=== PATIENT | male | born 1990 | race Caucasian/White ===

== ENCOUNTER 2017-03-28 09:35 | Emergency (ER) | payer BC, OTHER ==
[2017-03-28 10:37] LABS: Hematocrit 43 % (42-52); Hemoglobin 14.8 g/dl (14.0-18.0); Mean Corpuscular HGB Conc 34 g/dl (31-36); Mean Corpuscular Hemoglobin 29 pg (27-31); Mean Corpuscular Volume 85 fL (80-94); Mean Platelet Volume 8 um3 (7.4-10.4); Red Blood Count 5.07 10^6/ul (4.0-5.4); Red Cell Distribution Width 13 % (10.5-15); White Blood Count 7.1 10^3/ul (3.5-10.8)
[2017-03-28 10:50] LABS: ALT 16 U/L (7-52); AST 18 U/L (13-39); Albumin 4.5 g/dL (3.2-5.2); Alkaline Phosphatase 35 U/L (34-104); Anion Gap 6 mmol/L (2-11); BUN/Creatinine Ratio 16.3 (8-20); Blood Urea Nitrogen 14 mg/dL (6-24); CO2 Carbon Dioxide 26 mmol/L (22-32); Calcium 9.7 mg/dL (8.6-10.3); Chloride 102 mmol/L (101-111); EGFR African American 139.3 (>60); EGFR Non-African American 108.4 (>60); Globulin 2.8 g/dL (2-4); Glucose 93 mg/dL (70-100); Magnesium 2.2 mg/dL (1.9-2.7); Potassium 4.1 mmol/L (3.5-5.0); Sodium 134 mmol/L (133-145); Total Protein 7.3 g/dL (6.4-8.9)
[2017-03-28 11:14] LABS: Alcohol < 10 mg/dL (<10)
[2017-03-28 12:07] LABS: Urine Bilirubin Negative (Negative); Urine Glucose Negative (Negative); Urine Nitrite Negative (Negative)
[2017-03-28] MEDS ORDERED: Divalproex ER TAB(*) 500 MG PO ONE (12:10)
[2017-03-28 12:12] VITALS: BP 119/80
[2017-03-28 12:21] LABS: Benzodiazepine Urine Screen None Detected (None Detect)
--- NOTE | 2017-03-28 17:10 | ED ---
Irena Murphy Alfonso, scribed for Natanael Sparks MD on 03/28/17 at 1000 . Complex/Multi-Sys Presentation - HPI Summary HPI Summary: This patient is a 26 year old M presenting to [facility] accompanied by family with a chief complaint of a witnessed seizure at approximately 0900 today. Patient reports this was "different than any I have ever had this was a grand mal. Family reports he was standing, talking, just dropped, was caught before hitting the floor, foaming, giber gabber out of his mouth, he was out of it, not aware for a minute or so. The patient rates the pain 0/10 in severity. Symptoms alleviated by spontaneous resolution. Patient reports hunger, and dehydration. Patient denies fever, chills, N/V, CP, and recent substance use. He slept 7 hours last night. He is on depakote and Dr. Castillo is his neurologist. - History Of Current Complaint Chief Complaint: EDSeizure Time Seen by Provider: 03/28/17 09:45 Hx Obtained From: Patient, Family/Manager Human Resources Onset/Duration: Sudden Onset, Lasting Minutes - 1-2, Resolved Timing: Constant Severity Currently: None Alleviating Factor(s): spontaneous resolution Associated Signs And Symptoms: Positive: Other - hunger, and dehydration. Patient denies fever, chills, N/V, CP, and recent substance use. - Allergies/Home Medications Allergies/Adverse Reactions: Allergies Allergy/AdvReac Type Severity Reaction Status Date / Time No Known Allergies Allergy Verified 01/10/16 07:26 PMH/Surg Hx/FS Hx/Imm Hx Opthamlomology History: Denies: Hx Legally Blind EENT History: Denies: Hx Deafness Neurological History: Reports: Hx Seizures Infectious Disease History: No Infectious Disease History: Denies: History Other Infectious Disease, Traveled Outside the [place] in Last 30 Days - Family History Known Family History: Positive: Hypertension - Social History Alcohol Use: Rare Hx Substance Use: No Substance Use Type: Reports: None Hx Tobacco Use: No Smoking Status (MU): Never Smoked Tobacco Amount Used/How Often: DAILY Review of Systems Positive: Other - hunger, and dehydration. Negative: Fever, Chills Negative: Chest Pain Negative: Vomiting, Nausea Neurological: Other - seizure; negative recent substance use All Other Systems Reviewed And Are Negative: Yes Physical Exam - Summary Physical Exam Summary: VITAL SIGNS: Reviewed. GENERAL: Patient is a well-developed and nourished male who is lying comfortable in the stretcher. Patient is not in any acute respiratory distress. HEAD AND FACE: No signs of trauma. No ecchymosis, hematomas or skull depressions. No sinus tenderness. EYES: PERRLA, EOMI x 2, No injected conjunctiva, no nystagmus. No photophobia. EARS: Hearing grossly intact. Ear canals and tympanic membranes are within normal limits. MOUTH: Oropharynx within normal limits. NECK: Supple, trachea is midline, no adenopathy, no JVD, no carotid bruit, no c- spine tenderness, neck with full ROM. No meningeal signs, no Kernig's or brudzinskis signs. CHEST: Symmetric, no tenderness at palpation LUNGS: Clear to auscultation bilaterally. No wheezing or crackles. CVS: Regular rate and rhythm, S1 and S2 present, no murmurs or gallops appreciated. ABDOMEN: Soft, non-tender. No signs of distention. No rebound no guarding, and no masses palpated. Bowel sounds are normal. EXTREMITIES: FROM in all major joints, no edema, no cyanosis or clubbing. NEURO: Alert and oriented x 3. No acute neurological deficits. Speech is normal and follows commands. SKIN: Dry and warm GCS: 15 Triage Information Reviewed: Yes Vital Signs On Initial Exam: Initial Vitals Temp Pulse Resp BP Pulse Ox 97 F 78 16 138/68 99 03/28/17 09:36 03/28/17 09:36 03/28/17 09:36 03/28/17 09:36 03/28/17 09:36 Vital Signs Reviewed: Yes - [place] Coma Scale Best Eye Response: 4 - Spontaneous Best Motor Response: 6 - Obeys Commands Best Verbal Response: 5 - Oriented Diagnostics - Vital Signs Vital Signs Temp Pulse Resp BP Pulse Ox 03/28/17 09:54 86 97 03/28/17 09:48 121/75 03/28/17 09:36 97 F 78 16 138/68 99 - Laboratory Lab Results: Lab Results 03/28/17 03/28/17 03/28/17 Range/Units 10:25 10:25 10:25 WBC 7.1 (3.5-10.8) 10^3/ul RBC 5.07 (4.0-5.4) 10^6/ul Hgb 14.8 (14.0-18.0) g/dl Hct 43 (42-52) % MCV 85 (80-94) fL MCH 29 (27-31) pg MCHC 34 (31-36) g/dl RDW 13 (10.5-15) % Plt Count 258 (150-450) 10^3/ul MPV 8 (7.4-10.4) um3 Neut % (Auto) 67.7 (38-83) % Lymph % (Auto) 20.8 L (25-47) % Ida % (Auto) 8.8 (1-9) % Eos % (Auto) 1.8 (0-6) % Baso % (Auto) 0.9 (0-2) % Absolute Neuts (auto) 4.8 (1.5-7.7) 10^3/ul Absolute Lymphs (auto) 1.5 (1.0-4.8) 10^3/ul Absolute Monos (auto) 0.6 (0-0.8) 10^3/ul Absolute Eos (auto) 0.1 (0-0.6) 10^3/ul Absolute Basos (auto) 0.1 (0-0.2) 10^3/ul Absolute Nucleated RBC 0.01 10^3/ul Nucleated RBC % 0.1 INR (Anticoag Therapy) 1.01 (0.77-1.02) Sodium 134 (133-145) mmol/L Potassium 4.1 (3.5-5.0) mmol/L Chloride 102 (101-111) mmol/L Carbon Dioxide 26 (22-32) mmol/L Anion Gap 6 (2-11) mmol/L BUN 14 (6-24) mg/dL Creatinine 0.86 (0.67-1.17) mg/dL Est GFR ( Amer) 139.3 (>60) Est GFR (Non-Af Amer) 108.4 (>60) BUN/Creatinine Ratio 16.3 (8-20) Glucose 93 (70-100) mg/dL Lactic Acid (0.5-2.0) mmol/L Calcium 9.7 (8.6-10.3) mg/dL Magnesium 2.2 (1.9-2.7) mg/dL Total Bilirubin 0.70 (0.2-1.0) mg/dL AST 18 (13-39) U/L ALT 16 (7-52) U/L Alkaline Phosphatase 35 (34-104) U/L Total Protein 7.3 (6.4-8.9) g/dL Albumin 4.5 (3.2-5.2) g/dL Globulin 2.8 (2-4) g/dL Albumin/Globulin Ratio 1.6 (1-3) Urine Color Urine Appearance Urine pH (5-9) Ur Specific [place] (1.010-1.030) Urine Protein (Negative) Urine Ketones (Negative) Urine Blood (Negative) Urine Nitrate (Negative) Urine Bilirubin (Negative) Urine Urobilinogen (Negative) Ur Leukocyte Esterase (Negative) Urine Glucose (Negative) Urine Opiates Screen (None Detect) Ur Barbiturates Screen (None Detect) Valproic Acid 17.0 L (50-100) mcg/mL Ur Phencyclidine Scrn (None Detect) Ur Amphetamines Screen (None Detect) U Benzodiazepines Scrn (None Detect) Urine Cocaine Screen (None Detect) U Cannabinoids Screen (None Detect) Serum Alcohol < 10 (<10) mg/dL 03/28/17 03/28/17 03/28/17 Range/Units 10:25 11:56 11:56 WBC (3.5-10.8) 10^3/ul RBC (4.0-5.4) 10^6/ul Hgb (14.0-18.0) g/dl Hct (42-52) % MCV (80-94) fL MCH (27-31) pg MCHC (31-36) g/dl RDW (10.5-15) % Plt Count (150-450) 10^3/ul MPV (7.4-10.4) um3 Neut % (Auto) (38-83) % Lymph % (Auto) (25-47) % Ida % (Auto) (1-9) % Eos % (Auto) (0-6) % Baso % (Auto) (0-2) % Absolute Neuts (auto) (1.5-7.7) 10^3/ul Absolute Lymphs (auto) (1.0-4.8) 10^3/ul Absolute Monos (auto) (0-0.8) 10^3/ul Absolute Eos (auto) (0-0.6) 10^3/ul Absolute Basos (auto) (0-0.2) 10^3/ul Absolute Nucleated RBC 10^3/ul Nucleated RBC % INR (Anticoag Therapy) (0.77-1.02) Sodium (133-145) mmol/L Potassium (3.5-5.0) mmol/L Chloride (101-111) mmol/L Carbon Dioxide (22-32) mmol/L Anion Gap (2-11) mmol/L BUN (6-24) mg/dL Creatinine (0.67-1.17) mg/dL Est GFR ( Amer) (>60) Est GFR (Non-Af Amer) (>60) BUN/Creatinine Ratio (8-20) Glucose (70-100) mg/dL Lactic Acid 1.8 (0.5-2.0) mmol/L Calcium (8.6-10.3) mg/dL Magnesium (1.9-2.7) mg/dL Total Bilirubin (0.2-1.0) mg/dL AST (13-39) U/L ALT (7-52) U/L Alkaline Phosphatase (34-104) U/L Total Protein (6.4-8.9) g/dL Albumin (3.2-5.2) g/dL Globulin (2-4) g/dL Albumin/Globulin Ratio (1-3) Urine Color Yellow Urine Appearance Clear Urine pH 7.0 (5-9) Ur Specific [place] 1.009 L (1.010-1.030) Urine Protein Negative (Negative) Urine Ketones Negative (Negative) Urine Blood Negative (Negative) Urine Nitrate Negative (Negative) Urine Bilirubin Negative (Negative) Urine Urobilinogen Negative (Negative) Ur Leukocyte Esterase Negative (Negative) Urine Glucose Negative (Negative) Urine Opiates Screen None detected (None Detect) Ur Barbiturates Screen None detected (None Detect) Valproic Acid (50-100) mcg/mL Ur Phencyclidine Scrn None detected (None Detect) Ur Amphetamines Screen None detected (None Detect) U Benzodiazepines Scrn None detected (None Detect) Urine Cocaine Screen None detected (None Detect) U Cannabinoids Screen Presumptive positive H (None Detect) Serum Alcohol (<10) mg/dL Result Diagrams: 03/28/17 10:25 03/28/17 10:25 Lab Statement: Any lab studies that have been ordered have been reviewed, and results considered in the medical decision making process. - EKG 1055 Cardiac Rate: NL EKG Rhythm: Sinus Rhythm - 62 BPM EKG Interpretation: NAC Complex Multi-Symp Course/Dx Assessment/Plan: This patient is a 26 year old M presenting to [facility] accompanied by family with a chief complaint of a witnessed seizure at approximately 0900 today. Patient reports this was "different than any I have ever had this was a grand mal. Family reports he was standing, talking, just dropped, was caught before hitting the floor, foaming, giber gabber out of his mouth, he was out of it, not aware for a minute or so. The patient rates the pain 0/10 in severity. Symptoms alleviated by spontaneous resolution. Patient reports hunger, and dehydration. Patient denies fever, chills, N/V, CP, and recent substance use. He slept 7 hours last night. He is on depakote and Dr. Castillo is his neurologist. An EKG reveals Sinus Rhythm at 62 BPM with NAC. Test results with no significant abnormalities. Urinalysis negative for UTI. Urine toxicology positive for cannabinoids. Valproic acid is 17.0. I consulted Dr. Babin (neurologist) at 1159 who recommends increasing the patients depakote from 500 mg to 1000 mg. Patient will be discharged with follow up from PCP and Dr. Castillo (neurologist). The patient is agreeable with this plan. The patient is hemodynamically stable, alert and oriented x3. - Diagnoses Provider Diagnoses: Seizure - Physician Notifications Discussed Care Of Patient With: Ileana Babin Time Discussed With Above Provider: 11:59 Instructed by Provider To: Other - Consulted Dr. Babin (neurologist) at 1159 who recommends increasing the patients depakote from 500 mg to 1000 mg. Discharge - Discharge Plan Condition: Stable Disposition: HOME Patient Education Materials: Recurrent Seizures in Adults (ED) Referrals: Dick Bell MD [Primary Care Provider] - Rashawn Castillo MD [Medical Doctor] - 3 Days Additional Instructions: RETURN TO THE EMERGENCY DEPARTMENT FOR CHANGING OR WORSENING SYMPTOMS. The documentation as recorded by the Irena mcguire Alfonso accurately reflects the service I personally performed and the decisions made by Bridger haney Walter, MD.
== END 2017-03-28 12:33 | disposition home or self-care (01) ==
LOC: ED 09:35
DX: G40.909 Epilepsy, unspecified, not intractable, without status epilepticus (principal)
CPT/HCPCS: 36415; 80053; 80164; 80307; 80320; 81003; 83605; 83735; 85025; 85610; 93005; 99282; A9270-GY; G0480

== ENCOUNTER 2017-06-14 13:17 | Emergency (ER) | payer BC ==
[2017-06-14 13:29] VITALS: BP 134/94
--- NOTE | 2017-06-14 13:39 | UC ---
Skin Complaint HPI - HPI Summary HPI Summary: 26 y/o male presents to the urgent care c/o tick bite on his R upper arm he noticed yesterday. He thinks it was attached there for about 8hrs. Pt removed the tick completely. However his advised him to come to the clinic to get prophylactic. Pt denies pain, MUNOZ, joint pain, rash, SOb, chest pain, abdominal pain, N/V/D - History of Current Complaint Chief Complaint: UCSkin Time Seen by Provider: 06/14/17 13:31 Stated Complaint: TICK BITE Hx Obtained From: Patient Onset/Duration: Gradual Onset, Lasting Days - 1 day, Still Present Skin Exposure Onset/Duration: Days Ago - 1 day Timing: Constant Onset Severity: Mild Current Severity: Mild Pain Intensity: 1 Pain Scale Used: 0-10 Numeric Location: Discrete - Rt upper arm tick bite Character: Redness Aggravating Factor(s): Touch Alleviating Factor(s): Other - removal of tick Associated Signs & Symptoms: Positive: Rash. Negative: Fever, Chills, Cough, Tenderness Related History: Insect Bite/Sting - Allergy/Home Medications Allergies/Adverse Reactions: Allergies Allergy/AdvReac Type Severity Reaction Status Date / Time No Known Allergies Allergy Verified 06/14/17 13:29 Review of Systems Constitutional: Negative Skin: Rash - RT medial aspect w/ tick bite Eyes: Negative ENT: Negative Respiratory: Negative Cardiovascular: Negative Gastrointestinal: Negative Genitourinary: Negative Motor: Negative Neurovascular: Negative Musculoskeletal: Negative Neurological: Negative Psychological: Negative Is Patient Immunocompromised?: No All Other Systems Reviewed And Are Negative: Yes PMH/Surg Hx/FS Hx/Imm Hx Previously Healthy: Yes Neurological History: Seizures - Surgical History Surgical History: None - Family History Known Family History: Positive: None - Pt denies FMHX - Social History Alcohol Use: Rare Substance Use Type: None Smoking Status (MU): Never Smoked Tobacco Amount Used/How Often: DAILY - Immunization History Most Recent Influenza Vaccination: NOT RECENTLY Most Recent Tetanus Shot: 12/09/15 Physical Exam Triage Information Reviewed: Yes Vital Signs: Initial Vital Signs Temp 99.1 F 06/14/17 13:27 Pulse 70 06/14/17 13:27 Resp 16 06/14/17 13:27 BP 134/94 06/14/17 13:27 Pulse Ox 75 06/14/17 13:27 - Additional Comments Vital Signs Reviewed: Yes General: well developed, well nourished male sitting in the examining table w/o any apparent distress. Eyes: Positive: Conjunctiva Clear - PERRLA, EOMI ENT: Positive: Normal ENT inspection, Hearing grossly normal, Pharynx normal, TMs normal Neck: Positive: Supple, Nontender, No Lymphadenopathy Respiratory: Positive: Chest nontender, Lungs clear, Normal breath sounds Cardiovascular: Positive: RRR, No Murmur, Pulses Normal Abdomen Description: Positive: Nontender, No Organomegaly, Soft. Negative: CVA Tenderness (R), CVA Tenderness (L) Bowel Sounds: Positive: Present Musculoskeletal: Positive: Strength Intact, ROM Intact, No Edema Neurological Exam: Normal Psychological Exam: Normal Skin: Positive: rashes -Distal medial aspect of Rt upper arm with tick bite with surrounding erythema, non tender to palpation. tick no longer present, no swelling or drainage observed. Course/Dx - Course Course Of Treatment: 26 y/o male presents to the urgent care c/o tick bite on his R upper arm he noticed yesterday. He thinks it was attached there for about 8hrs. Pt removed the tick completely. However his advised him to come to the clinic to get prophylactic. Pt denies pain, MUNOZ, joint pain, rash, SOB, chest pain, abdominal pain, N/V/D. Hx obtained. Tick no longer present. Antibiotic prophylaxis with Doxycycline given to the patient to prevent lyme Disease.. Pt tolerated well medication. Pt advised to observe the area for the development or Erythema Migrans for upto 30 days following exposure. Advised if he develops fever or erythema Migrans to return to the clinic or PCP for further treatment. Pt's BP is elevated today advised to decrease salt in diet, monitor BP and f/u with PCP for further management. Pt understood and agreed with plan of care. - Differential Diagnoses - Skin Complaint Differential Diagnoses: Contact Dermatitis, Local Allergic Reaction, Scabies, Tick Born Illness, Urticaria, Other - Diagnoses Provider Diagnoses: 1-Tick bite Discharge - Discharge Plan Condition: Stable Disposition: HOME Patient Education Materials: Tick Bite (ED), Low-Sodium Diet (ED) Referrals: Dick Bell MD [Primary Care Provider] - 2 Weeks Travis AGRAWAL,Ramos Cornejo [Medical Doctor] - If Needed Additional Instructions: 1- Please observe the area for the development or Erythema Migrans for up to 30 days following exposure. Components of the tick saliva can cause transient erythema that should not be confused with Erythema Migrans. If you develop the bull's eye rash, fever, joint pains please return to the urgent care or f/u with your PCP for further management. 2-Antibiotic prophylaxis with Doxycycline was given to you today to prevent lyme Disease. Lyme serology can be drawn in 2 weeks with your PCP to r/o Lyme disease since there is probability of negative results at early exposure 3-.Your BP is elevated today. please decrease salt in your diet, monitor BP and if it continues to be elevated please f/u with your PCP for further management
[2017-06-14] MEDS ORDERED: DOXYcycline CAP(*) 100 MG PO ONE (13:41)
== END 2017-06-14 13:49 | disposition home or self-care (01) ==
LOC: UCEAST 13:17
DX: S40.861A Insect bite (nonvenomous) of right upper arm, initial encounter (principal); W57.XXXA Bitten or stung by nonvenomous insect and other nonvenomous arthropods, initial encounter; Y93.9 Activity, unspecified; Y92.9 Unspecified place or not applicable; R21 Rash and other nonspecific skin eruption; R56.9 Unspecified convulsions
CPT/HCPCS: 99212; A9270-GY; G0463

== ENCOUNTER 2018-06-15 07:12 | Emergency (ER) | payer BC ==
[2018-06-15 07:22] VITALS: BP 146/79
[2018-06-15 07:35] LABS: Influenza A Molecular POSITIVE (Negative)
--- NOTE | 2018-06-15 07:53 | UC ---
FLU HPI - HPI Summary HPI Summary: 2 DAYS OF COUGH, CONGESTION, BODY ACHES, FEVER, CHILLS, HEADACHES AND NAUSEA. SLIGHT SORE THROAT WITH COUGH. NO FLU SHOT THIS SEASON. - History of Current Complaint Chief Complaint: UCRespiratory Stated Complaint: COUGH HEADACHE BACK PAIN Time Seen by Provider: 06/15/18 07:15 Hx Obtained From: Patient Onset/Duration: Gradual Onset, Lasting Days, Still Present Severity Currently: Moderate Severity Initially: Moderate Pain Intensity: 7 Pain Scale Used: 0-10 Numeric Associated Signs & Symptoms: Positive: Fever, Myalgia, Cough, Nasal Congestion, Headache - Allergy/Home Medications Allergies/Adverse Reactions: Allergies Allergy/AdvReac Type Severity Reaction Status Date / Time No Known Allergies Allergy Verified 06/15/18 07:22 Home Medications: Home Medications Dm/PE/Acetaminophen/Chlorphenr [Cold Multi-Symptom Day-Night] 1 dose PO ONCE PRN 06/15/18 [History Confirmed 06/15/18] PMH/Surg Hx/FS Hx/Imm Hx Neurological History: Seizures - Surgical History Surgical History: None - Family History Known Family History: Positive: Hypertension - Social History Alcohol Use: Rare Substance Use Type: None Smoking Status (MU): Never Smoked Tobacco Amount Used/How Often: DAILY - Immunization History Most Recent Influenza Vaccination: NOT RECENTLY Most Recent Tetanus Shot: 12/09/15 Review of Systems All Other Systems Reviewed And Are Negative: Yes Constitutional: Positive: Fever, Chills, Fatigue ENT: Positive: Nasal Discharge Respiratory: Positive: Cough Cardiovascular: Positive: Negative Gastrointestinal: Positive: Nausea Musculoskeletal: Positive: Myalgia Neurological: Positive: Headache Physical Exam Triage Information Reviewed: Yes Appearance: No Pain Distress, Well-Nourished, Ill-Appearing - MILDLY Vital Signs: Initial Vital Signs Temp 100.2 F 06/15/18 07:17 Pulse 76 06/15/18 07:17 Resp 18 06/15/18 07:17 BP 146/79 06/15/18 07:17 Pulse Ox 97 06/15/18 07:17 Laboratory Tests 06/15/18 07:30 Influenza A (Rapid) Positive A Vital Signs Reviewed: Yes Eyes: Positive: Conjunctiva Clear ENT: Positive: Hearing grossly normal, Pharynx normal, TMs normal Neck: Positive: Supple, Nontender, No Lymphadenopathy Respiratory Exam: Normal Cardiovascular Exam: Normal Abdomen Description: Positive: Soft Musculoskeletal: Positive: No Edema Neurological: Positive: Alert Psychological: Positive: Age Appropriate Behavior Skin: Negative: Rashes Flu Course/Dx - Differential Dx/Diagnosis Provider Diagnosis: Influenza A Discharge - Sign-Out/Discharge Documenting (check all that apply): Patient Departure All imaging exams completed and their final reports reviewed: No Studies - Discharge Plan Condition: Stable Disposition: HOME Prescriptions: Oseltamivir CAP* [Tamiflu CAP*] 75 mg PO BID #10 cap Patient Education Materials: Influenza (ED) Forms: *Work Release Referrals: Dick Bell MD [Primary Care Provider] - Additional Instructions: SWAB POSITIVE FOR INFLUENZA A. TAMIFLU TWICE DAILY FOR 5 DAYS. OTC MEDS NEEDED FOR FEVER, BODY ACHES. STAY WELL HYDRATED AND RESTED. SEEK FOLLOW-UP IF YOU ARE NOT IMPROVING EXPECTED. - Billing Disposition and Condition Condition: STABLE Disposition: Home
== END 2018-06-15 08:00 | disposition home or self-care (01) ==
LOC: UCEAST 07:12
DX: J10.1 Influenza due to other identified influenza virus with other respiratory manifestations (principal)
CPT/HCPCS: 99212; G0463